=== PATIENT | female | born 2000 | race Two or more races ===

== ENCOUNTER 2022-01-20 09:45 | Emergency (ER) | payer OTHER ==
[~2022-01-20] VITALS: Ht 165.1 cm; Wt 63.5 kg
[2022-01-20] MEDS ORDERED: PRENATAL CAPLE1 EAC1 (10:27)
[2022-01-20] MEDS ORDERED: FOLIC ACID0.8 M1 (10:28)
== END 2022-01-20 11:29 | disposition home or self-care (01) ==
LOC: ER 09:45
DX: O26.893 Other specified pregnancy related conditions, third trimester (principal); Z3A.31 31 weeks gestation of pregnancy; H60.92 Unspecified otitis externa, left ear